=== PATIENT | male | born 1995 | race African-American/Black ===

== ENCOUNTER 2017-09-21 00:22 | Emergency (ER) | payer OTHER | END 2017-09-21 03:33 | disposition home or self-care (01) | LOC: FTE 00:22 | DX: S80.862A Insect bite (nonvenomous), left lower leg, initial encounter (principal); W57.XXXA Bitten or stung by nonvenomous insect and other nonvenomous arthropods, initial encounter; Y92.9 Unspecified place or not applicable | CPT/HCPCS: 99284; Z7502 ==